=== PATIENT | female | born 1950 | race Caucasian/White ===

== ENCOUNTER 2023-10-13 11:41 | Emergency (ER) | payer MEDICARE, SELFPAY ==
[2023-10-13 11:56] VITALS: BP 169/74; PULSE 69; RESP 16; TEMP 36.9; O2SAT 97; BMI 24.3
[2023-10-13 12:05] VITALS: BMI 24.3
--- NOTE | 2023-10-13 12:06 | DI.RAD.S_ITS ---
PROCEDURE: XR TIBIA FUBULA RT 2V INDICATIONS: trip and fall with leg pain TECHNIQUE: 2 views of the tibia and fibula were acquired. COMPARISON: None. FINDINGS: Bones: Mild degenerative changes medial compartment of the right knee. No acute fracture or dislocation. Soft tissues: No suspicious soft tissue calcifications or masses. IMPRESSION: No acute bony abnormality. Dictated by: Yesenia Garcia M.D. on 10/13/2023 at 15:35 Approved by: Yesenia Garcia M.D. on 10/13/2023 at 15:37
--- NOTE | 2023-10-13 14:58 | ED_ITS ---
HPI - Extremity Injury (Lower) General Chief Complaint: Extremity Injury, Lower Stated Complaint: fall t-1 Time Seen by Provider: 10/13/23 14:47 Source: patient Mode of arrival: Ambulatory History of Present Illness HPI Narrative: Patient complains of right knee pain. She states she was at the family house in the kitchen and they dog tripped her and she fell onto her right knee. No prior history of knee surgery or fracture. Patient has been ambulatory with this. Knee to ankle exposed. Patient able to fully extend and flexes past 90?. No gross deformity. Related Data Home Medications Medication Instructions Recorded Confirmed ASPIRIN (#ASPIR 81) 81 mg PO QDAY ##0 12/01/10 MULTIVITAMIN (Multiple Vitamins 1 tab PO QDAY ##0 12/01/10 Daily) Ascorbic Acid/Bioflavonoid 1 tab PO PRN ##0 11/23/11 (#VITAMIN C) Fluoxetine Hydrochloride 40 mg PO QDAY ##0 11/23/11 (FLUOXETINE) Allergies Allergy/AdvReac Type Severity Reaction Status Date / Time NARCOTICS AdvReac Unknown EXTREMELY Uncoded 06/09/17 12:16 SENSITIVE TO; IS OUT OF IT FOR THREE DAYS AFTER Review of Systems Review of Systems Narrative: GENERAL: negative chills, fatigue, malaise, fever, sweats. HEENT: negative sinus pain, ear pain, sore throat RESPIRATORY: negative dyspnea, cough CARDIOVASCULAR: negative chest pain, palpitations GASTROINTESTINAL: negative nausea, vomiting, abdominal pain : negative dysuria, frequency, hematuria MUSCULOSKELETAL: Positive muscle or bony pain SKIN: negative rash, skin lesions NEUROLOGIC: negative weakness, numbness Patient History Social History Smoking Status: Never smoker Smoking Status: Never smoker alcohol intake frequency: other Alcohol type: other Substance Use Type: does not use Exam Narrative Exam Narrative: GENERAL: in no distress, not toxic not dyspneic HEAD: Normocephalic. EYES: Pupils equal round EXTREMITIES: No gross deformities. Examination right lower extremity. Knee to toes exposed. Nontender ankle and foot. No bruising to the knee leg or foot or ankle. Foot warm soft and pink strong pedal pulse light touch intact to foot and toes. Brisk cap refills. Mild tenderness to the proximal anterior tibia. No gross deformity. Patient able to flex past 90? and fully extend the knee. NEURO: AOx4. SKIN: Warm and dry PSYCH: Not anxious, is cooperative Initial Vital Signs Initial Vital Signs: Vital Signs Temperature 98.5 F 10/13/23 11:56 Pulse Rate 69 10/13/23 11:56 Respiratory Rate 16 10/13/23 11:56 Blood Pressure 169/74 H 10/13/23 11:56 Pulse Oximetry 97 10/13/23 11:56 Oxygen Delivery Method Room Air 10/13/23 11:56 Course Orders Ordered: ED Orders 10/13/23 12:06 XR tibia fibula RT 2V Stat 10/13/23 14:57 CT LE RT wo con Stat Vital Signs Vital signs: Vital Signs - 8 hr 10/13/23 11:56 10/13/23 16:23 Temperature 98.5 F Pulse Rate 69 60 Respiratory Rate 16 Blood Pressure 169/74 H 141/66 H Pulse Oximetry 97 98 Oxygen Delivery Method Room Air MDM - Extremity Injury (Lower) Imaging Data Extremity x-ray #1: Radiologist's Impression: [address] [address] [address] Scan Report Signed Patient: Ashley Fischer MR#: [id number] : 1950 Acct:[id number] Age/Sex: 73 / F Date of Service: 10/13/23 Loc: ED Accession Number: [id number] Procedure: CT LE RT wo con Ordering Provider: Castro Price MD PROCEDURE: CT LE RT WO CON INDICATIONS: Right knee pain/fall/pain TECHNIQUE: Noncontrast 1-1.5 mm axial sections acquired from the mid-patella to the proximal tibia, with coronal and sagittal reformats. COMPARISON: [facility], CR, XR TIBIA FIBULA RT 2V, 10/13/2023, 12:16. FINDINGS: Image quality: Excellent. Bones: No acute fracture or dislocation of the right knee. 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 Small distal quadriceps enthesophyte. Soft tissues: Small, simple right knee effusion. No popliteal cyst. Mild prepatellar subcutaneous edema. The distal quadriceps and the patellar tendon are intact. Limited evaluation of the ACL, which appears intact. The PCL is intact. IMPRESSION: 1. Small, simple right knee effusion. 2. Mild prepatellar subcutaneous edema. 3. No acute fracture or dislocation. Dictated by: Yesenia Garcia M.D. on 10/13/2023 at 16:18 Approved by: Yesenia Garcia M.D. on 10/13/2023 at 16:23 Extremity x-ray #2: Radiologist's Impression: [address] [address] XRay Report Signed Patient: Ashley Fischer MR#: [id number] : 1950 Acct:[id number] Age/Sex: 73 / F Date of Service: 10/13/23 Loc: ED Accession Number: [id number] Procedure: XR tibia fibula RT 2V Ordering Provider: Castro Price MD PROCEDURE: XR TIBIA FUBULA RT 2V INDICATIONS: trip and fall with leg pain TECHNIQUE: 2 views of the tibia and fibula were acquired. COMPARISON: None. FINDINGS: Bones: Mild degenerative changes medial compartment of the right knee. No acute fracture or dislocation. Soft tissues: No suspicious soft tissue calcifications or masses. IMPRESSION: No acute bony abnormality. Dictated by: Yesenia Garcia M.D. on 10/13/2023 at 15:35 Approved by: Yesenia Garcia M.D. on 10/13/2023 at 15:37 [facility] Narrative Medical decision making narrative: Patient complains of right knee pain. She states she was at the family house in the kitchen and they dog tripped her and she fell onto her right knee. No prior history of knee surgery or fracture. Patient has been ambulatory with this. Knee to ankle exposed. Patient able to fully extend and flexes past 90?. No gross deformity. After history and exam x-ray right tib-fib, CT right knee, pain is controlled. Patient does not want anything for pain. [facility] Medical records reviewed: No recent visit for this complaint Differential considered: Includes but not limited to knee fracture knee dislocation tibial plateau fracture contusion strain sprain Imaging studies independently reviewed: X-ray right tib-fib, CT knee, no fracture Consultations: None indicated at this time Treatments: Pain is controlled patient does not want anything for pain Re-evaluations: 4:34 p.m.. Updated patient results. This time imaging and exam are reassuring. Return precautions reviewed with patient. Patient given referral for Orthopedics to follow up with. Not toxic at discharge. She desires discharge home Discussion: Appropriate for discharge home exam is reassuring. Imaging reassuring as well. Pain is controlled. Orthopedic referral provided. She desires discharge home. She will continue Tylenol or ibuprofen for pain. Diagnosis: Right knee contusion Discharge Plan Departure Patient Disposition: Home Clinical Impression: Contusion of knee, right Qualifiers: Encounter type: initial encounter Qualified Code(s): S80.01XA - Contusion of right knee, initial encounter Instructions: DI for Contusion, DI for Knee Pain Activity Restrictions/Additional Instructions: Your exam and x-ray and CT scan imaging of the knee are reassuring. No broken bones seen today. See family doctor or call provided orthopedic office tomorrow for follow up within a week for re-evaluation. Please elevate knee when at rest to reduce swelling. May continue ibuprofen or Tylenol for pain. Please use provided walker for ambulation. May toe-touch and weightbear as tolerated. Use Finn wrap for comfort. Prescriptions: No Action ASPIRIN (#ASPIR 81) 81 mg PO QDAY Qty: 0 MULTIVITAMIN (Multiple Vitamins Daily) 1 tab PO QDAY Qty: 0 Ascorbic Acid/Bioflavonoid (#VITAMIN C) 1 tab PO PRN Qty: 0 Fluoxetine Hydrochloride (FLUOXETINE) 40 mg PO QDAY Qty: 0 Referrals: Marla Looney MD [Physician] - Stand Alone Forms: Patient Portal/API
[2023-10-13 16:23] VITALS: BP 141/66; PULSE 60; O2SAT 98
== END 2023-10-13 16:52 | disposition home or self-care (01) ==
PROVIDERS: Emergency Provider Emergency Medicine
DX: S80.01XA Contusion of right knee, initial encounter (principal); W01.0XXA Fall on same level from slipping, tripping and stumbling without subsequent striking against object, initial encounter
CPT/HCPCS: 73590; 73700; 99283

== ENCOUNTER 2024-03-12 13:59 | Emergency (ER) | payer MEDICARE, SELFPAY ==
[2024-03-12] VITALS (25 sets, daily range): BP systolic 119–218; BP diastolic 64–120; PULSE 67–83; RESP 16; TEMP 37; O2SAT 95–99; BMI 23.3
--- NOTE | 2024-03-12 18:31 | ED_ITS ---
HPI - Headache General Chief Complaint: Headache Stated Complaint: Headache lots of pressure Time Seen by Provider: 03/12/24 17:00 Source: patient and family Mode of arrival: Family Vehicle Limitations: no limitations History of Present Illness HPI Narrative: Patient was a 73-year-old female. Not on anticoagulation. Has a history of high cholesterol. Is here for evaluation of a headache and pressure in her head that has been present for the past 3 days. She states that she noticed it a couple days ago when she woke up. He was not necessarily a sudden onset but does seem to be positional and with motion. When she was lying down her symptoms are actually better except when she moves her head around. When she sits up she has persistent discomfort and then it worsens when she moves her head. No fevers. She did sustain a head injury in December of 2023. She was seen at an outside facility. Stated that she had 2 head CTs during that visit however was told that there was no bleeding. She did have headache afterwards for a couple days/week but then that headache resolved and this is a new headache. No vision changes. No fevers. No neck pain. No chest pain, shortness of breath, abdominal pain. No numbness or tingling in her upper and lower extremities. Related Data Home Medications Medication Instructions Recorded Confirmed ASPIRIN (#ASPIR 81) 81 mg PO QDAY ##0 12/01/10 MULTIVITAMIN (Multiple Vitamins 1 tab PO QDAY ##0 12/01/10 Daily) Ascorbic Acid/Bioflavonoid 1 tab PO PRN ##0 11/23/11 (#VITAMIN C) Fluoxetine Hydrochloride 40 mg PO QDAY ##0 11/23/11 (FLUOXETINE) Allergies Allergy/AdvReac Type Severity Reaction Status Date / Time NARCOTICS AdvReac Unknown EXTREMELY Uncoded 06/09/17 12:16 SENSITIVE TO; IS OUT OF IT FOR THREE DAYS AFTER Review of Systems Review of Systems ROS Unobtainable: All systems reviewed & are unremarkable except as noted in HPI and below Patient History Social History Smoking Status: Never smoker Smoking Status: Never smoker alcohol intake frequency: other Alcohol type: other Exam Initial Vital Signs Initial Vital Signs: Vital Signs Temperature 98.6 F 03/12/24 14:13 Pulse Rate 74 03/12/24 14:13 Respiratory Rate 16 03/12/24 14:13 Blood Pressure 183/77 H 03/12/24 14:13 Pulse Oximetry 98 03/12/24 14:13 Oxygen Delivery Method Room Air 03/12/24 14:13 Const General: cooperative, comfortable, well groomed and No ill appearing HENMT Head: normal to inspection and normocephalic Face and sinus: normal facial exam Resp Effort & Inspection: normal respiratory effort Auscultation: clear to auscultation bilaterally Cardio Rate: regular rate Rhythm: regular rhythm GI Inspection: normal to inspection and non-distended Skin General: no rashes or lesions noted Neuro General: patient alert, patient awake, patient oriented x3 and moves all extremities Cognition: normal cognition Speech: speech normal Gait: normal gait Extrem General: capillary refill normal and No edema Scores GCS [place] coma scale eye opening: Spontaneous Safia coma scale verbal response: Orientated [place] coma scale motor response: Obey commands Safia coma scale total score: 15 Course Orders Ordered: ED Orders 03/12/24 18:32 CT head/brain wo con Stat 03/12/24 20:18 Basic Metabolic Panel Stat Complete Blood Count AUTO DIFF Stat Discontinued Medications Nicardipine HCl 25 mg/ Sodium (Chloride) 250 mls @ 50 mls/hr IV TITRATE JAMEEL; Protocol Last Admin: 03/12/24 22:06 Dose: 5 mg/hr, 50 mls/hr Documented By: Acetaminophen (Ofirmev) 1,000 mg in 100 mls @ 400 mls/hr IV NOW ONE Stop: 03/12/24 22:06 Last Infusion: 03/12/24 22:15 Dose: Infused Documented By: Admin: 03/12/24 22:00 Dose: 400 mls/hr Documented By: Labetalol HCl (Labetalol 20 Mg/4 Ml Syringe) 10 mg IV NOW ONE Stop: 03/12/24 21:18 Last Admin: 03/12/24 21:28 Dose: 10 mg Documented By: Vital Signs Vital signs: Vital Signs - 8 hr 03/12/24 16:43 03/12/24 16:43 03/12/24 17:00 Pulse Rate 72 73 Respiratory Rate 16 Blood Pressure 172/79 H Pulse Oximetry 99 98 Oxygen Delivery Method 03/12/24 17:00 03/12/24 17:30 03/12/24 18:04 Pulse Rate 76 75 Respiratory Rate Blood Pressure 167/77 H Pulse Oximetry 98 98 Oxygen Delivery Method 03/12/24 18:05 03/12/24 18:05 03/12/24 18:30 Pulse Rate 73 75 Respiratory Rate Blood Pressure 178/80 H Pulse Oximetry 98 99 Oxygen Delivery Method 03/12/24 18:47 03/12/24 18:47 03/12/24 19:00 Pulse Rate 76 76 Respiratory Rate Blood Pressure 167/120 H Pulse Oximetry 99 98 Oxygen Delivery Method 03/12/24 19:01 03/12/24 19:01 03/12/24 19:30 Pulse Rate 78 73 Respiratory Rate Blood Pressure 119/64 Pulse Oximetry 98 98 Oxygen Delivery Method Room Air 03/12/24 20:00 03/12/24 20:30 03/12/24 20:59 Pulse Rate 73 74 Respiratory Rate Blood Pressure 218/95 H Pulse Oximetry 97 97 Oxygen Delivery Method 03/12/24 20:59 03/12/24 21:00 03/12/24 21:01 Pulse Rate 83 74 Respiratory Rate Blood Pressure 207/88 H Pulse Oximetry 98 98 Oxygen Delivery Method 03/12/24 21:01 03/12/24 21:12 03/12/24 21:12 Pulse Rate 76 81 Respiratory Rate Blood Pressure 195/79 H Pulse Oximetry 97 97 Oxygen Delivery Method 03/12/24 21:28 03/12/24 21:30 03/12/24 21:35 Pulse Rate 77 76 Respiratory Rate Blood Pressure 195/79 H 155/67 H Pulse Oximetry 97 Oxygen Delivery Method 03/12/24 21:35 03/12/24 21:54 03/12/24 22:01 Pulse Rate 69 Respiratory Rate Blood Pressure 177/75 H Pulse Oximetry 95 97 Oxygen Delivery Method 03/12/24 22:03 03/12/24 22:03 03/12/24 22:15 Pulse Rate 67 69 Respiratory Rate Blood Pressure 202/84 H Pulse Oximetry 99 97 Oxygen Delivery Method 03/12/24 22:16 03/12/24 22:16 Pulse Rate 68 Respiratory Rate Blood Pressure 173/76 H Pulse Oximetry 97 Oxygen Delivery Method Room Air MDM - Headache Lab Data Attestation: I reviewed the patient's lab results. 03/12/24 20:18 03/12/24 20:18 Labs: Lab Results 03/12/24 Range/Units 20:18 WBC 6.7 (4.5-11.0) X10^3/uL RBC 4.26 (4.0-5.2) X10^6/uL Hgb 12.9 (12.0-16.0) g/dL Hct 37.8 (36-46) % MCV 88.8 (80-100) fL MCH 30.3 (26-34) PG MCHC 34.1 (30-36) % RDW 13.0 (11.6-14.8) % Plt Count 351 (150-400) X10^3/uL Neut % (Auto) 60.6 (50-75) % Lymph % (Auto) 27.5 (25-40) % Divide % (Auto) 10.0 (3-14) % Eos % (Auto) 0.9 L (2-4) % Baso % (Auto) 1.0 (0-2) % Neut # (Auto) 4000 (8397-9076) /uL Lymph # (Auto) 1800 (5279-0007) /uL Divide # (Auto) 700 (0-900) /uL Eos # (Auto) 100 (0-450) /uL Baso # (Auto) 100 (0-100) /uL Sodium 136 L (137-145) mmol/L Potassium 3.5 (3.4-5.1) mmol/L Chloride 104 (98-107) mmol/L Carbon Dioxide 26 (22-32) mmol/L BUN 10 (7-17) mg/dL Creatinine 0.57 (0.52-1.04) mg/dL Estimated GFR > 60 (>60) mL/min BUN/Creatinine Ratio 17.5 (6-22) Glucose 90 (80-110) mg/dL Calcium 9.4 (8.4-10.2) mg/dL Urine Dip Bedside Urine Glucose Negative Bedside Urine Bilirubin - Negative Bedside Urine Ketone - Negative Urine Specific [place] 1.010 Bedside Urine Occult Blood - Negative Bedside Urine pH 7.0 Bedside Urine Protein - Negative Bedside Urine Urobilinogen - Negative Bedside Urine Nitrite - Negative Bedside Urine Leukocytes - Negative Esterase Imaging Data CT scan - head: Radiologist's Impression: PROCEDURE: CT HEAD/BRAIN WO CON INDICATIONS: Posterior headaches after fall TECHNIQUE: Noncontrast 4.5 mm thick angled axial sections acquired from the foramen magnum to the vertex, with coronal and sagittal reformats. For radiation dose reduction, the following was used: automated exposure control, adjustment of mA and/or kV according to patient size. COMPARISON: None. FINDINGS: Image quality: Diagnostic. CSF spaces: Basal cisterns are patent. The ventricles are symmetric in size and shape. Brain: There is a mixed density left subdural hematoma seen, with a maximal thickness of 5 mm. There is also thickening and hyperdensity of the left tentorium No intracranial masses. There is cerebral volume loss for age, with resultant ventricular and sulcal prominence. There are periventricular and deep white matter chronic small vessel ischemic changes. There is intracranial internal carotid artery atherosclerosis. Skull and face: There is a mild scalp hematoma seen posteriorly and on the right, as on series 6, image 23. No associated calvarial fracture is seen. Calvarium and visualized facial bones appear intact, without suspicious lesions. Sinuses: Visualized sinuses and mastoids are clear. IMPRESSION: Mild mixed density left subdural hematoma. Thickening and hyperdensity of the left tentorium can be seen, which is suspicious for additional subarachnoid hemorrhage. Mild right posterior lateral scalp hematoma, without an associated fracture. Note: Case discussed by telephone with Dr. Castillo at 7:02 p.m. [place] time on March 12, 2024. [facility] Narrative Medical decision making narrative: CT scan today shows what appears to be a subdural and subarachnoid hemorrhage. I am unable to obtain head CTs from her prior visit at an outside facility. The fax system at our facility is not working. We attempted to obtain results through e-mail and also through our radiology department but were unsuccessful through this route as well. Patient started to develop a worsening headache and is now hypertensive. Patient was given IV Tylenol. I discussed the case with Dr. Seay neurosurgery at [facility]. We were able to get the outside facility to send the images to [facility] and they did confirm that there was no head bleed on the CT images from December. Her symptoms has been present for 3 days. Patient was initially given labetalol IV for her blood pressure and this did improve the systolic to less than 160 however it started to trend back up. She was started on a nicardipine drip. Goal for blood pressure is less than 160. I did discuss the findings of the head CT with the patient. Patient was stable for transport. Discharge Plan Departure Patient Disposition: [facility] Clinical Impression: Subdural hemorrhage, Subarachnoid hemorrhage Prescriptions: No Action ASPIRIN (#ASPIR 81) 81 mg PO QDAY Qty: 0 MULTIVITAMIN (Multiple Vitamins Daily) 1 tab PO QDAY Qty: 0 Ascorbic Acid/Bioflavonoid (#VITAMIN C) 1 tab PO PRN Qty: 0 Fluoxetine Hydrochloride (FLUOXETINE) 40 mg PO QDAY Qty: 0
[2024-03-12 20:32] LABS: Add Manual Diff / Slide Review NO; Basophils Absolute Auto 100 /uL (0-100); Eosinophils Absolute Auto 100 /uL (0-450); Eosinophils Percent Auto 0.9 % (2-4); Hematocrit 37.8 % (36-46); Hemoglobin 12.9 g/dL (12.0-16.0); Lymphocytes Absolute Auto 1800 /uL (1100-4500); Lymphocytes Percent Auto 27.5 % (25-40); Mean Corpuscular HGB Conc 34.1 % (30-36); Mean Corpuscular Hemoglobin 30.3 PG (26-34); Mean Corpuscular Volume 88.8 fL (80-100); Monocytes Absolute Auto 700 /uL (0-900); Neutrophils Absolute Auto 4000 /uL (1500-7000); Neutrophils Percent Auto 60.6 % (50-75); Platelet Count 351 X10^3/uL (150-400); Red Blood Cell Count 4.26 X10^6/uL (4.0-5.2); White Blood Cell Count 6.7 X10^3/uL (4.5-11.0)
[2024-03-12 20:39] LABS: BUN Creatinine Ratio 17.5 (6-22); Blood Urea Nitrogen 10 mg/dL (7-17); Calcium 9.4 mg/dL (8.4-10.2); Carbon Dioxide 26 mmol/L (22-32); Chloride 104 mmol/L (98-107); Estimated Glomerular Filt Rate > 60 mL/min (>60); Glucose 90 mg/dL (80-110); HEMOLYSIS < 15 (0-50); Potassium 3.5 mmol/L (3.4-5.1); Sodium 136 mmol/L (137-145)
[2024-03-12] MEDS: LABETALOL 20 MG/4 ML SYRINGE 10 MG IV (21:28)
[2024-03-12] MEDS: ACETAMINOPHEN IV 1,000 MG/100 ML VIAL 400 MG IV (22:00)
[2024-03-12] MEDS: NICARDIPINE 25 MG in SODIUM CHLORIDE 0.9% 240 ML 50 MG IV (22:06)
== END 2024-03-12 22:38 | disposition short-term general hospital (02) ==
PROVIDERS: Emergency Provider Emergency Medicine
DX: S06.6XAA Traumatic subarachnoid hemorrhage with loss of consciousness status unknown, initial encounter (principal); S06.5XAA Traumatic subdural hemorrhage with loss of consciousness status unknown, initial encounter
CPT/HCPCS: 36415; 70450; 80048; 81003; 85025; 96365; 96375; 99284; 99285; J0134